=== PATIENT | female | born 1950 | race Caucasian/White ===

== ENCOUNTER 2017-02-19 07:11 | Inpatient (IN) | payer OTHER ==
[2017-01-12 11:02] VITALS: BMI 31.0
--- NOTE | 2017-01-12 11:34 | PAT Medication Instructions ---
Service Date Jan 12, 2017. Current Home Medication List Albuterol Sulfate (Proair Respiclick), 1 PUFF INH QID PRN for Shortness of Breath Allopurinol (Zyloprim), 300 MG PO QAM Aspirin (Aspirin Ec), 81 MG PO QAM Cholecalciferol (Vitamin D3), 1 TAB PO BID Cranberry-Vitamin C (Azo Cranbery Urinary Trac 250-60 mg), 1 CAP PO QAM Fluticasone Prop/Salmeterol (Advair Diskus 250/50 60 Dose), 1 PUFF INH BID Naproxen (Naprosyn), 500 MG PO QAM Naproxen (Naprosyn), 250 MG PO HS [place]-3 Fatty Acids (Fish Oil), 1 CAP PO QAM Omeprazole (Prilosec), 20 MG PO QAM Potassium Gluconate (Potassium Gluconate), 1 TAB PO QAM Rosuvastatin Calcium (Crestor), 5 MG PO Q2D Tramadol Hcl (Ultram), 25-50 MG PO Q4HR PRN Triamterene/Hctz (Dyazide 37.5MG/25MG), 1 TABLET PO BID Medication Instructions For Your Scheduled Surgery - Hold the following medications 2 weeks prior to surgery: [place]-3 Fatty Acids (Fish Oil), 1 CAP PO QAM Cranberry-Vitamin C (Azo Cranbery Urinary Trac 250-60 mg), 1 CAP PO QAM - Hold the following medications 7-10 days prior to surgery per surgeon's instructions: Naproxen (Naprosyn), 500 MG PO QAM Naproxen (Naprosyn), 250 MG PO HS - Hold the following medications the morning of surgery: Triamterene/Hctz (Dyazide 37.5MG/25MG), 1 TABLET PO BID Cholecalciferol (Vitamin D3), 1 TAB PO BID Potassium Gluconate (Potassium Gluconate), 1 TAB PO QAM - Take the following medications the morning of surgery with a sip of water OTHERWISE NOTHING TO EAT OR DRINK AFTER MIDNIGHT: Aspirin (Aspirin Ec), 81 MG PO QAM Fluticasone Prop/Salmeterol (Advair Diskus 250/50 60 Dose), 1 PUFF INH BID Allopurinol (Zyloprim), 300 MG PO QAM Omeprazole (Prilosec), 20 MG PO QAM Tramadol Hcl (Ultram), 25-50 MG PO Q4HR PRN (may take if needed up to 4 hours prior to surgery) Albuterol Sulfate (Proair Respiclick), 1 PUFF INH QID PRN for Shortness of Breath (use if needed; BRING TO HOSPITAL) - Take the following medications as scheduled the night before surgery: Triamterene/Hctz (Dyazide 37.5MG/25MG), 1 TABLET PO BID Cholecalciferol (Vitamin D3), 1 TAB PO BID Fluticasone Prop/Salmeterol (Advair Diskus 250/50 60 Dose), 1 PUFF INH BID Tramadol Hcl (Ultram), 25-50 MG PO Q4HR PRN Rosuvastatin Calcium (Crestor), 5 MG PO Q2D Albuterol Sulfate (Proair Respiclick), 1 PUFF INH QID PRN for Shortness of Breath If you have any questions please call us at [phone] or [phone] or [phone]
[2017-01-12 12:08] LABS: BASO % 0.2 %; BASO ABS # 0.01 K/uL (0-0.2); COMPLETE YES; EOS % 1.7 %; HEMATOCRIT 37.1 % (37-47); IG% 0.3 %; LYMPH % 29.1 %; LYMPH ABS # 1.71 K/uL (1.2-3.4); MEAN CELL VOLUME 94.4 fL (80-100); MEAN CORPUSCULAR HEMOGLOBIN 31.3 pg (25-34); MEAN CORPUSCULAR HGB CONC 33.2 g/dl (32-36); MEAN PLATELET VOLUME 10.7 fL (7.4-10.4); MONO % 4.6 %; NEUT % 64.1 %; PLATELET COUNT 248 K/uL (130-400); RED BLOOD COUNT 3.93 M/uL (4.2-5.4); WHITE BLOOD COUNT 5.88 K/uL (4.8-10.8)
[2017-01-12 12:10] LABS: URINE APPEARANCE CLEAR (CLEAR); URINE BILIRUBIN NEG (NEG); URINE COLOR YELLOW; URINE NITRITE NEG (NEG); URINE PH 7.5 (4.5-7.5); URINE SPECIFIC GRAVITY 1.014 (1.000-1.030); UROBILINOGEN NEG (NEG); ZZUR CULT IF INDIC CLEAN CATCH NO
[2017-01-12 12:16] LABS: MANUAL MICROSCOPIC REQUIRED? NO; REVIEW REQ? NO
[2017-01-12 12:26] LABS: PARTIAL THROMBOPLASTIN RATIO 1.1; PROTHROMBIN TIME (PATIENT) 10.6 SECONDS (9.0-12.0)
[2017-01-12 12:31] LABS: BUN/CREATININE RATIO 27.5 (10-20); CALCIUM 9.5 mg/dl (8.5-10.1); CREATININE 0.92 mg/dl (0.60-1.20); POTASSIUM 3.7 mmol/L (3.5-5.1)
--- NOTE | 2017-01-12 12:39 | DIAGNOSTIC IMAGING REPORT ---
CHEST 2 VIEWS ROUTINE CLINICAL HISTORY: PAT preoperative evaluation COMPARISON STUDY: 06/21/2012 FINDINGS: The bones soft tissues and hemidiaphragms are normal. The cardiomediastinal silhouette is normal. The lungs are clear. The pulmonary vasculature is normal. IMPRESSION: Negative chest. Electronically signed by: Aquiles Hanley M.D. 01/12/2017 12:37 PM Dictated Date/Time: 01/12/2017 12:37 PM
--- NOTE | 2017-02-16 15:12 | HISTORY & PHYSICAL EXAMINATION ---
DATE OF ADMISSION: 02/19/2017 CHIEF COMPLAINT: Left knee pain. HISTORY OF PRESENT ILLNESS: Domonique is a 66-year-old female with a 5-year history of pain in her left knee. The patient rates her pain a 10/10. She has pain with her daily activities. She has limited standing and walking tolerance. Pain is worse with weightbearing. The patient has had injections, anti-inflammatories, and tramadol without relief. She has failed conservative treatment and is scheduled for left knee replacement. PAST MEDICAL HISTORY: Hypercholesterolemia, hypertension, COPD, and Meniere's disease. She denies heart disease, diabetes or DVT. PAST SURGICAL HISTORY: Hysterectomy, right total knee arthroplasty. SOCIAL HISTORY: The patient denies alcohol or tobacco use. She lives in a 2-story home. She is and retired. FAMILY HISTORY: Negative for DVT. MEDICATIONS: Advair Diskus 250/50 one puff q. 12 hours, ProAir 108 mcg 2 puffs q. 4 hours p.r.n., allopurinol 300 mg, omeprazole 20 mg, triamterene/hydrochlorothiazide 37.5/25 daily, tramadol 50 mg p.r.n., naproxen 500 mg b.i.d., aspirin 81 mg daily, vitamin D3 1000 international units daily, AZO 1 per day, potassium gluconate 550 mcg daily, Crestor 5 mg every other day, and fish oil 1200 mg 1 daily. ALLERGIES: CALCIUM, DOXYCYCLINE, LEVOFLOXACIN, SULFA AND CODEINE. SHE HAS SEVERE INTOLERANCE TO NARCOTICS. REVIEW OF SYSTEMS: See HPI. Ten other systems reviewed, all negative. PHYSICAL EXAMINATION: VITAL SIGNS: Height 5 feet 3 inches, weight 174 pounds, BMI 31. GENERAL: This is a well-developed, well-nourished female who is alert and oriented x3. Mood and affect are appropriate. HEENT: Normocephalic, atraumatic. Mucous membranes are moist and intact. NECK: Supple without lymphadenopathy. HEART: Regular rate and rhythm without murmurs, rubs or gallops. LUNGS: Clear to auscultation without wheezes or rhonchi. ABDOMEN: Soft and nontender. Bowel sounds are equal and active. EXTREMITIES: No ecchymosis, redness or warmth. She has varus valgus deformity. Range of motion is from 3-115 degrees with +1 laxity. She is neurovascularly intact with +5/5 strength. X-RAY EXAMINATION: AP and lateral views show joint space narrowing and osteophyte formation. IMPRESSION: Degenerative joint disease, left knee. PLAN: The patient will be admitted for a left total knee arthroplasty. We will plan on aspirin for DVT prophylaxis. She will have [facility] for physical therapy. PCP is Jeremy Fuentes in [place]. The patient will be limited in her narcotics because they make her nauseous.
[~2017-02-19] VITALS: Ht 160 cm; Wt 79.4 kg
[2017-02-19] VITALS (9 sets, daily range): BP systolic 110–174; BP diastolic 64–85; PULSE 60–79; TEMP 36.4–36.6; O2SAT 96–98; Ht 160 cm; Wt 79.4 kg
[2017-02-19] MEDS: TRANEXAMIC ACID INJ 1,000 MG in SODIUM CHLORIDE 0.9% 100ML 100 ML IV SCH ×2 (06:30→09:05)
[~2017-02-19 07:11] MED LIST: ACETAMINOPHEN 500 MG TAB PO SCH; ADVIN25/60 INH; ALBU18002 INH; ALLO300T2 PO; ASPI81TA28 PO; BUPIVACAINE 0.5 % 5 MG/1 ML PF 10ML VIAL ONE; CEFAZOLIN 2000 MG/60 ML D5W 60 ML IV SCH; CHOL1000 PO; CITA10TA8 PO; CRAN1CAP24 PO; DEXAMETHASONE 4 MG TAB PO SCH; FAMOTIDINE 20 MG TAB PO SCH; GABAPENTIN 300 MG CAP PO SCH; LACTATED RINGER'S 1000ML 1,000 ML IV SCH; LACTATED RINGER'S 1000ML IV SCH; METOCLOPRAMIDE HCL 10 MG TAB PO SCH; NAPR-1169 PO; OMEGCAP2 PO; POLYMYXIN B SULFATE 100,000 UNITS in NSS 100ML IR SCH; POTA550T4 PO; PRLSR20 PO; ROPIVACAINE 5MG/ML 30 ML 150 MG, BUPIVACAINE/EPINEPHR 0.5% MPF 30 ML, KETOROLAC TROMETH... INFIL SCH; ROSU5TAB PO; SCOPOLAMINE 1.5 MG TDSY TD SCH; TRAMADOL HCL 50 MG TAB PO SCH; TRIA37.5 PO; ULT/50 PO; VANCOMYCIN INJ 400 MG in NSS 100ML IR SCH
[2017-02-19] MEDS ORDERED: PROPOFOL IV EMULSION 10 MG/ML 20 ML VIAL IV ONE (08:19)
[2017-02-19] MEDS ORDERED: LIDOCAINE HCL 2% 2 ML VIAL (20MG/ML) ONE (08:19)
[2017-02-19] MEDS ORDERED: MIDAZOLAM HCL 1 MG/ML 2ML VIAL ONE (08:20)
[2017-02-19] MEDS ORDERED: FENTANYL CITRATE INJ 50 MCG/1 ML 2 ML VIAL ONE (08:20)
--- NOTE | 2017-02-19 08:23 | History & Physical Bridge Note ---
H&P Re-Evaluation Bridge Note: I have examined the patient, reviewed the History & Physical and in the interval since the performance of the History & Physical I have noted the following changes of clinical significance: No changes noted
[2017-02-19] MEDS ORDERED: POVIDONE-IODINE OP SOLN 30 ML BTL ONE (08:57)
[2017-02-19] MEDS ORDERED: BACITRACIN 50000 UNIT VIAL ONE (08:57)
[2017-02-19] MEDS ORDERED: BUPIVACAINE/EPINEPHRINE 0.25% 1:200,000 30 ML VIAL ONE (08:57)
[2017-02-19] MEDS ORDERED: ORTHO JOINT ANESTHETIC ONE (08:57)
[2017-02-19] MEDS ORDERED: ATROPINE SULFATE 0.1 MG/ML 5ML SYR IV PRN (09:00)
[2017-02-19] MEDS ORDERED: MoRPHine SULFATE 10 MG/ML CARP/VIAL IV PRN (09:00)
[2017-02-19] MEDS ORDERED: FENTANYL CITRATE INJ 50 MCG/1 ML 2 ML VIAL IV PRN (09:00)
[2017-02-19] MEDS ORDERED: MEPERIDINE HCL 25 MG/ML CARP IV PRN (09:00)
[2017-02-19] MEDS ORDERED: EpHEDrine SULFATE INJ 50 MG/ML AMP IV PRN (09:00)
[2017-02-19] MEDS ORDERED: ONDANSETRON INJ 2 MG/ML 2 ML VIAL IV PRN ×2 (09:00→10:45)
--- NOTE | 2017-02-19 10:34 | [facility] Post Operative Brief Note ---
Immediate Operative Summary Operative Date Feb 19, 2017. Pre-Operative Diagnosis Left Knee Degenerative Joint Disease Post-Operative Diagnosis Left Knee Degenerative Joint Disease Procedure(s) Performed Left Total Knee Arthroplasty, Cemented Surgeon Dr. Grabiel Prater Sanding Machine Tender Surgeon(s) Sandee Banerjee PA-C Estimated Blood Loss 75 mL Findings DJD Specimens A: Left Knee Bone and Tissue Complication(s) None Disposition Recovery Room / PACU
[2017-02-19] MEDS ORDERED: ZOLPIDEM TARTRATE 5 MG TAB PO PRN (10:45)
[2017-02-19] MEDS ORDERED: SOD PHOSPHATE/SOD BIPHOSPHATE ENEMA 132 ML BTL PR PRN (10:45)
[2017-02-19] MEDS ORDERED: BISACODYL 10 MG SUPP PR PRN (10:45)
[2017-02-19] MEDS ORDERED: ALUMINUM/MAGNESIUM/SIMETH (MAALOX MAX) 30 ML UDC PO PRN (10:45)
[2017-02-19] MEDS ORDERED: ALBUTEROL HFA 8 GM INHALER INH PRN (10:45)
[2017-02-19] MEDS ORDERED: DiphenhydrAMINE HCL 50 MG/ML VIAL IV PRN (10:45)
[2017-02-19] MEDS ORDERED: MAGNESIUM HYDROXIDE SUSP 30 ML UDC PO PRN (10:45)
[2017-02-19] MEDS ORDERED: METOCLOPRAMIDE HCL INJ 5 MG/ML 2 ML VIAL IV PRN (10:45)
--- NOTE | 2017-02-19 12:00 | DIAGNOSTIC IMAGING REPORT ---
LEFT KNEE 1 OR 2 VIEWS ROUTINE CLINICAL HISTORY: Degenerative arthritis COMPARISON: None. DISCUSSION: There are postsurgical changes of a total left knee arthroplasty and patellar resurfacing. The femoral and tibial components appear well seated. There are overlying surgical drains. There is air within the soft tissues consistent with history of recent surgery IMPRESSION: Postsurgical changes of a total left knee arthroplasty Electronically signed by: Anam Reddy M.D. 02/19/2017 11:59 AM Dictated Date/Time: 02/19/2017 11:58 AM
[2017-02-19] MEDS: D5W AND 1/2NSS + 20MEQ KCL 1,000 ML IV SCH ×2 (13:07→22:29)
--- NOTE | 2017-02-19 13:52 | Anesthesiology Progress Note ---
Anesthesia Post Op Note Date & Time Feb 19, 2017 at 13:52 Vital Signs Pain Intensity: 0.0 Vital Signs Past 12 Hours Date Time Temp Pulse Resp B/P Pulse Ox O2 Delivery O2 Flow Rate FiO2 02/19/17 13:23 36.4 73 16 125/75 98 Nasal Cannula 2.0 02/19/17 12:41 64 16 115/69 02/19/17 12:15 96 Nasal Cannula 3.0 02/19/17 12:15 36.6 69 16 111/66 96 Nasal Cannula 3.0 02/19/17 12:15 96 Nasal Cannula 3.0 02/19/17 11:50 36.8 69 16 113/57 97 Nasal Cannula 3 02/19/17 11:35 36.8 67 16 120/60 99 Nasal Cannula 3 02/19/17 11:25 67 16 119/56 99 Nasal Cannula 3 02/19/17 11:15 72 16 123/62 99 Mask 10 02/19/17 11:05 36.3 73 16 126/62 96 Mask 10 02/19/17 07:45 36.6 75 20 174/85 96 Room Air Notes Mental Status: alert / awake / arousable, participated in evaluation Pt Amnestic to Procedure: Yes Nausea / Vomiting: adequately controlled Pain: adequately controlled Airway Patency, RR, SpO2: stable & adequate BP & HR: stable & adequate Hydration State: stable & adequate Neuraxial Anesthesia: was administered, sensory block is resolving Anesthetic Complications: no major complications apparent
[2017-02-19] MEDS: ACETAMINOPHEN 500 MG TAB PO SCH ×2 (14:10→21:53)
[2017-02-19] MEDS: KETOROLAC TROMETHAMINE 15 MG/ML VIAL IV. SCH ×2 (14:11→19:40)
[2017-02-19] MEDS: CHECK SCOPOLAMINE PATCH PLACEMENT SCH ×2 (16:03→23:34)
[2017-02-19] MEDS ORDERED: TRANEXAMIC ACID INJ 1,000 MG in SODIUM CHLORIDE 0.9% 100ML 100 ML IV SCH (17:00)
[2017-02-19] MEDS: CLINDAMYCIN IV 600 MG in DEXTROSE 5% ADD-VANTAGE 50ML 50 ML IV SCH (18:02)
[2017-02-19] MEDS: FLUTICASONE/SALMETEROL 250/50 (ADVAIR) 14 PUFF/1 INHALER INH SCH (20:53)
[2017-02-19] MEDS: ASPIRIN 81 MG ECTAB PO SCH (20:53)
[2017-02-19] MEDS: CHOLECALCIFEROL 1000 INTER.UNIT TAB PO SCH (20:54)
[2017-02-19] MEDS: SENNA 8.6 MG TAB PO SCH (20:54)
[2017-02-19] MEDS: TRIAMTERENE/HCTZ 37.5/25MG CAP PO SCH (20:54)
[2017-02-20] MEDS: CLINDAMYCIN IV 600 MG in DEXTROSE 5% ADD-VANTAGE 50ML 50 ML IV SCH (01:40)
[2017-02-20] MEDS: KETOROLAC TROMETHAMINE 15 MG/ML VIAL IV. SCH ×4 (01:40→19:41)
--- NOTE | 2017-02-20 02:47 | OPERATIVE REPORT ---
DATE OF OPERATION: 02/19/2017 PREOPERATIVE DIAGNOSIS: Degenerative arthritis, left knee. POSTOPERATIVE DIAGNOSIS: Same. PROCEDURE: Left total knee replacement. SURGEON: Grabiel Prater MD OUTDOOR STUDIES DIRECTOR: PAPITO Lowery ANESTHESIA: Spinal. BLOOD LOSS: 75 mL. REPLACEMENT FLUIDS: 1800 mL of crystalloid. DRAINS: Hemovac x2. CULTURES: None. COMPLICATIONS: None. COMPONENTS USED: Garcia \T\ Nephew Journey Knee System: Femur size 5, tibia size 4 x 12, patella size 35. NOTE: PAPITO Lowery was present and assisted throughout due to the complicated nature of this case. She helped with preparation and set up, first assisted throughout and personally closed capsule, subcutaneous and skin layers and applied the postoperative dressing. DESCRIPTION OF PROCEDURE: Following satisfactory spinal, the patient was supine. A tourniquet was placed but not inflated. The lower extremity was prepared with ChloraPrep and draped sterilely. Following a surgical time-out, a midline incision was made with a median parapatellar arthrotomy. The patella showed severe disease, so did the lateral compartment. The cruciate ligaments were excised. Using the IM alignment system with a 6 degree valgus cut, the distal femur was prepared and sized for a size 5 component. When all cuts were completed, attention was turned to the tibia. The tibia was resected with the extramedullary alignment guide in a neutral fashion and prepared. The patella was freehand cut. Soft tissue balancing was completed and a trial reduction showed good tensioning stability on the collateral ligaments, stable range of motion, and the patella tracked well. The trial components were removed. The capsule was prepared with the orthopedic cocktail and after irrigation, the components were cemented using Simplex G cement. While the cement was hardening, a Betadine soak was performed. The Betadine was then irrigated, 2 drains were placed. The arthrotomy was closed with a running suture of 0 V-Loc and reinforced with 1 Vicryl, the subcutaneous tissues with 2-0 Vicryl and the skin with a running subcuticular stitch of 3-0 V-Loc. Dermabond and a dry dressing were applied. The patient was returned to her bed in stable condition. I attest to the content of the Intraoperative Record and any orders documented therein. Any exceptio ns are noted below.
[2017-02-20 03:10] VITALS: BP 136/61; PULSE 73; TEMP 36.5; O2SAT 98
[2017-02-20] MEDS: TRAMADOL HCL 50 MG TAB PO PRN ×4 (03:15→21:19)
[2017-02-20] MEDS: ACETAMINOPHEN 500 MG TAB PO SCH ×3 (05:31→21:23)
--- NOTE | 2017-02-20 07:46 | Anesthesiology Progress Note ---
Anesthesia Post Op Note Date & Time Feb 20, 2017 at 07:45 Vital Signs Pain Intensity: 7.0 Vital Signs Past 12 Hours Date Time Temp Pulse Resp B/P Pulse Ox O2 Delivery O2 Flow Rate FiO2 02/20/17 03:10 36.5 73 16 136/61 98 Room Air 02/19/17 23:30 Room Air 02/19/17 23:25 36.5 60 16 113/67 96 Room Air Notes Mental Status: alert / awake / arousable, participated in evaluation Pt Amnestic to Procedure: Yes Nausea / Vomiting: adequately controlled Pain: adequately controlled Airway Patency, RR, SpO2: stable & adequate BP & HR: stable & adequate Hydration State: stable & adequate Anesthetic Complications: no major complications apparent
[2017-02-20 07:49] LABS: HEMATOCRIT 32.2 % (37-47); MEAN CELL VOLUME 90.7 fL (80-100); MEAN CORPUSCULAR HGB CONC 34.2 g/dl (32-36); MEAN PLATELET VOLUME 10.7 fL (7.4-10.4); PLATELET COUNT 248 K/uL (130-400); RED BLOOD COUNT 3.55 M/uL (4.2-5.4); WHITE BLOOD COUNT 14.28 K/uL (4.8-10.8)
[2017-02-20 08:00] VITALS: BP 164/74; PULSE 80; TEMP 36.6; O2SAT 97
[2017-02-20] MEDS: CHECK SCOPOLAMINE PATCH PLACEMENT SCH ×2 (08:00→16:37)
[2017-02-20 08:12] LABS: BUN/CREATININE RATIO 23.9 (10-20); CALCIUM 8.8 mg/dl (8.5-10.1); POTASSIUM 3.6 mmol/L (3.5-5.1)
[2017-02-20] MEDS: ASPIRIN 81 MG ECTAB PO SCH ×2 (08:52→21:22)
[2017-02-20] MEDS: MULTIVITAMIN TAB PO SCH (08:52)
[2017-02-20] MEDS: CITALOPRAM 20 MG TAB PO SCH (08:54)
[2017-02-20] MEDS: ALLOPURINOL 300 MG TAB PO SCH (08:54)
[2017-02-20] MEDS: CHOLECALCIFEROL 1000 INTER.UNIT TAB PO SCH ×2 (08:55→21:24)
[2017-02-20] MEDS: PANTOprazole SOD 40 MG TAB PO SCH (08:55)
[2017-02-20] MEDS: FLUTICASONE/SALMETEROL 250/50 (ADVAIR) 14 PUFF/1 INHALER INH SCH ×2 (08:56→21:22)
[2017-02-20] MEDS: TRIAMTERENE/HCTZ 37.5/25MG CAP PO SCH ×2 (08:56→21:22)
[2017-02-20] MEDS: D5W AND 1/2NSS + 20MEQ KCL 1,000 ML IV SCH (09:00)
[2017-02-20] MEDS ORDERED: ROSUVASTATIN CALCIUM 10 MG TAB PO SCH (09:00)
[2017-02-20] MEDS ORDERED: NON-FORMULARY MEDICATION (Potassium Gluconate 1 TAB) PO SCH (09:00)
--- NOTE | 2017-02-20 10:59 | Orthopedic Progress Note ---
Orthopedic Progress Note Date of Service Feb 20, 2017. Subjective Post OP Day: 1 Reports: feeling well, Denies: SOB, calf pain, chest pain, light headedness, nausea / vomiting Objective calves soft nontender, N/V intact, dressing C/D/I, A&O x3, toes mobile, hemovac drainage (175ml latest shift) Date Time Temp Pulse Resp B/P Pulse Ox O2 Delivery O2 Flow Rate FiO2 02/20/17 09:33 Room Air 02/20/17 08:00 36.6 80 18 164/74 97 Room Air 02/20/17 07:30 Room Air 02/20/17 03:10 36.5 73 16 136/61 98 Room Air 02/19/17 23:30 Room Air 02/19/17 23:25 36.5 60 16 113/67 96 Room Air 02/19/17 19:44 36.4 67 16 124/71 96 Room Air 02/19/17 15:45 97 Room Air 2.0 02/19/17 15:26 79 16 110/64 02/19/17 14:22 36.4 69 18 121/67 97 Room Air 02/19/17 13:23 36.4 73 16 125/75 98 Nasal Cannula 2.0 02/19/17 12:41 64 16 115/69 02/19/17 12:15 96 Nasal Cannula 3.0 02/19/17 12:15 36.6 69 16 111/66 96 Nasal Cannula 3.0 02/19/17 12:15 96 Nasal Cannula 3.0 02/19/17 11:50 36.8 69 16 113/57 97 Nasal Cannula 3 02/19/17 11:35 36.8 67 16 120/60 99 Nasal Cannula 3 02/19/17 11:25 67 16 119/56 99 Nasal Cannula 3 02/19/17 11:15 72 16 123/62 99 Mask 10 02/19/17 11:05 36.3 73 16 126/62 96 Mask 10 Laboratory Results 24 Hours: Test 02/20/17 07:10 Hematocrit 32.2 % Hemoglobin 11.0 g/dL Assessment & Plan Assessment: POD 1 s/p Left TKA Plan: PT/OT Planning for [facility] tomorrow per patient. Inhouse Planning Pain Management: Toradol, Ultram, PO Tylenol DVT Prophylaxis: TEDs, SCDs, ASA Discharge Planning Discharge Planning: home with home health Pain Management: Ultram, PO Tylenol DVT Prophylaxis: TEDs, ASA Therapy: Physical Therapy
--- NOTE | 2017-02-20 12:14 | Discharge Instructions ---
Discharge Instructions Date of Service Feb 20, 2017. Admission Reason for Admission: Left Knee Degenerative Arthritis Discharge Discharge Diagnosis / Problem: SP LEFT TKA Discharge Goals Goal(s): Decrease discomfort, Improve function, Increase independence Activity Recommendations Activity Limitations: per Instructions/Follow-up section . Instructions / Follow-Up Instructions / Follow-Up ACTIVITY RECOMMENDATIONS: SELF CARE INSTRUCTIONS AFTER TOTAL KNEE REPLACEMENT A. You may need to continue a physical therapy program after discharge from the hospital. There are several options available to you. Your doctor will assist you in selecting the best one for you. 1. An out-patient facility 2 to 3 times a week for therapy or home therapy. 2. Continue working on all exercises taught to you in the hospital. Your goals should be to increase bending of your knee to 90 degrees and beyond and to fully straighten your knee. B. You may progress at your own pace from walking with a walker or crutches to a cane; then to no assistive devices. C. Make walking a part of your daily routine. Be up as much as comfortable with rest periods throughout the day. Rest with leg elevation is very important. Use the ice wrap frequently for the first 3-4 weeks. D. There are no restrictions on activities. You may ride in a car, shop, participate in tax agent and all social activities. E. Wear the long elastic stockings (MARCE hose) 20 hours a day for 2 weeks after surgery. They can be removed several times a day for laundering and for a bath. F. You may shower, no tub baths until cleared by your doctor. SPECIAL CARE INSTRUCTIONS: VERY IMPORTANT TO READ AND REVIEW A. There are a few signs you need to watch for after you are home. Call [facility] if you notice any of the followin. Increased severe knee pain. Some pain is expected especially when you exercise. 2. Increased swelling in your leg or knee; pain or swelling of the calf muscle in either lower leg. 3. Any fluid drainage from the incision. 4. Shortness of breath or chest pain. B. Please call [facility] at if you have any concerns or questions about your operation or recovery. The doctor or his nurse will return your call promptly. C. You must take antibiotics before dental work, bladder, bowel or other surgery. Your doctor will provide you with a permanent care to carry describing this precaution. IMPORTANT: * REMEMBER TO TAKE ASPIRIN, 81 MG, TWICE DAILY FOR 4 WEEKS UNLESS OTHERWISE DIRECTED. THIS IS YOUR BLOOD THINNER. * HIGH RISK PATIENTS MAY BE PRESCRIBED A STRONGER BLOOD THINNER. THIS WILL BE PROVIDED AT DISCHARGE. * CALL IF INCREASED PAIN, REDNESS, DRAINAGE OR FEVER GREATER THAT 101. * WEAR MARCE HOSE 20 HOURS PER DAY FOR 2 WEEKS. DERMABOND Prineo- This is a mesh tape dressing that is covered with glue. It should remain in place until the incision is properly healed, usually 10-14 days. This dressing is designed to naturally slough off. You may trim the excess mesh tape as it peels off. Incision may be briefly wet in a shower. Dry immediately by blotting with a clean, dry towel. Do not bath or swim until instructed by your doctor. Do not scratch, rub, or pick at the dressing. Do not apply any topical ointments or lotions until dressing is completely removed and/or instructed by your doctor. There may be a small piece of suture material at one end of your incision. Do not pull or trim this. If it is bothersome or catching on clothing, you may cover it with a band-aid. FOLLOW UP VISIT: If appointment is not already scheduled: Please call [facility] to make a follow-up appointment for 2 weeks after your surgery at . Current Hospital Diet Patient's current hospital diet: Regular Diet Discharge Diet Recommended Diet: Regular Diet Procedures Procedures Performed: Left Total Knee Arthroplasty, Cemented Pending Studies Studies pending at discharge: no Medical Emergencies . Who to Call and When: Medical Emergencies: If at any time you feel your situation is an emergency, please call 911 immediately. . Non-Emergent Contact Non-Emergency issues call your: Surgeon . "Provider Documentation" section prepared by Sandee Banerjee. VTE Core Measure Inpt VTE Proph given/why not?: Other Anticoagulation, T.E.D. Stockings, SCD's
[2017-02-20 12:28] VITALS: BP 158/81; PULSE 74; TEMP 36.9; O2SAT 99
[2017-02-20 15:21] VITALS: BP 140/65; PULSE 75; TEMP 36.5; O2SAT 96
[2017-02-20] MEDS: SENNA 8.6 MG TAB PO SCH (21:00)
[2017-02-20 23:50] VITALS: BP 146/73; PULSE 75; TEMP 36.6; O2SAT 96
[2017-02-21] MEDS: CHECK SCOPOLAMINE PATCH PLACEMENT SCH
[2017-02-21] MEDS: KETOROLAC TROMETHAMINE 15 MG/ML VIAL IV. SCH ×2 (02:26→07:37)
[2017-02-21] MEDS: ACETAMINOPHEN 500 MG TAB PO SCH (05:33)
[2017-02-21] MEDS: TRAMADOL HCL 50 MG TAB PO PRN ×2 (05:33→10:59)
[2017-02-21 07:01] VITALS: BP 127/72; PULSE 71; TEMP 36.8; O2SAT 98
--- NOTE | 2017-02-21 07:33 | Orthopedic Progress Note ---
Orthopedic Progress Note Date of Service Feb 21, 2017. Subjective Post OP Day: 2 Reports: feeling well, Denies: SOB, calf pain, chest pain, light headedness, nausea / vomiting Objective calves soft nontender, N/V intact, incision C/D/I (mod ecchymosis at hemovac site.), A&O x3, toes mobile Date Time Temp Pulse Resp B/P Pulse Ox O2 Delivery O2 Flow Rate FiO2 02/21/17 07:01 36.8 71 16 127/72 98 Room Air 02/20/17 23:50 36.6 75 16 146/73 96 Room Air 02/20/17 20:20 Room Air 02/20/17 15:21 36.5 75 18 140/65 96 Room Air 02/20/17 12:28 36.9 74 16 158/81 99 Room Air 02/20/17 09:33 Room Air 02/20/17 08:00 36.6 80 18 164/74 97 Room Air Assessment & Plan Assessment: POD 2 s/p Left TKA Plan: PT/OT Planning for [facility]- DC HOME TODAY Inhouse Planning Pain Management: Toradol, Ultram, PO Tylenol DVT Prophylaxis: TEDs, SCDs, ASA Discharge Planning Discharge Planning: home with home health Pain Management: Ultram, PO Tylenol DVT Prophylaxis: TEDs, ASA Therapy: Physical Therapy
[2017-02-21] MEDS: ALLOPURINOL 300 MG TAB PO SCH (07:36)
[2017-02-21] MEDS ORDERED: ACET-1138 PO (07:36)
[2017-02-21] MEDS ORDERED: ULT/50 PO (07:36)
[2017-02-21] MEDS ORDERED: ASPI81TA28 PO (07:36)
[2017-02-21] MEDS: CITALOPRAM 20 MG TAB PO SCH (07:36)
[2017-02-21] MEDS ORDERED: ONDA8TAB6 PO (07:36)
[2017-02-21] MEDS ORDERED: SNK PO (07:36)
[2017-02-21] MEDS: PANTOprazole SOD 40 MG TAB PO SCH (07:37)
[2017-02-21] MEDS: CHOLECALCIFEROL 1000 INTER.UNIT TAB PO SCH (07:37)
[2017-02-21] MEDS: FLUTICASONE/SALMETEROL 250/50 (ADVAIR) 14 PUFF/1 INHALER INH SCH (07:38)
[2017-02-21] MEDS: MULTIVITAMIN TAB PO SCH (07:38)
[2017-02-21] MEDS: TRIAMTERENE/HCTZ 37.5/25MG CAP PO SCH (07:38)
[2017-02-21 08:04] VITALS: BP 138/78; PULSE 78; TEMP 36.6; O2SAT 99
[2017-02-21 09:18] VITALS: O2SAT 99
[2017-02-21] MEDS: ASPIRIN 81 MG ECTAB PO SCH (10:58)
[2017-02-21 11:01] VITALS: BP 138/78; PULSE 78; TEMP 36.6; O2SAT 99
--- NOTE | 2017-03-07 08:57 | DISCHARGE SUMMARY ---
DISCHARGE DIAGNOSIS: Degenerative joint disease, left knee. SECONDARY DIAGNOSIS: Hypertension. CONSULTS: None. COMPLICATIONS: None. PROCEDURE: The patient underwent a left total knee arthroplasty by Dr. Prater on 02/19/2017. BRIEF HISTORY: Please see previously dictated history and physical. HOSPITAL SUMMARY: The patient was admitted on the above day for the above procedure. Procedure went without complication. Postop day 1, the patient was feeling well without complaints. She denied chest pain or shortness of breath. Vital signs were stable. She was afebrile. Dressing was clean, dry and intact. She was neurovascularly intact. Calves were soft and nontender. Hemovac drained 175 mL. Hemoglobin was 11.0. She began physical therapy per protocol. Postop day 2, the patient continued to improve. She denied chest pain or shortness of breath. Vital signs were stable. She was afebrile. Incision was clean, dry and intact. She had moderate ecchymosis at the Hemovac site. She continued to progress with therapy and was discharged to home later that day in stable condition. For further review, please see the chart. LABORATORY, X-RAY DATA, AND DISCHARGE INSTRUCTIONS: As per chart.
== END 2017-02-21 11:30 | disposition home health service (06) | DRG 470 ==
LOC: ENRESERVDT → ENRESERVTM → C.ACU 07:11 → C.3E 08:00
PROVIDERS: ADMIT Orthopaedic Surgery; ATTEND Orthopaedic Surgery
PROC: 0SRD0J9 Replacement of Left Knee Joint with Synthetic Substitute, Cemented, Open Approach (ICD-10-PCS; principal; 2017-02-19 09:15)
DX: M17.12 Unilateral primary osteoarthritis, left knee (principal); I10 Essential (primary) hypertension; E78.00 Pure hypercholesterolemia, unspecified; J44.9 Chronic obstructive pulmonary disease, unspecified; J45.909 Unspecified asthma, uncomplicated; H81.09 Meniere's disease, unspecified ear; K21.9 Gastro-esophageal reflux disease without esophagitis; G43.909 Migraine, unspecified, not intractable, without status migrainosus; M10.9 Gout, unspecified; E66.9 Obesity, unspecified; Z68.31 Body mass index [BMI] 31.0-31.9, adult; Z96.651 Presence of right artificial knee joint; Z79.1 Long term (current) use of non-steroidal anti-inflammatories (NSAID); Z79.82 Long term (current) use of aspirin; Z79.51 Long term (current) use of inhaled steroids; Z79.891 Long term (current) use of opiate analgesic; Z79.899 Other long term (current) drug therapy

== ENCOUNTER → 2017-06-13 | Outpatient (CLI) | payer OTHER ==
[~2017-06-13] MED LIST changes: +ACET-1138 PO; -ACETAMINOPHEN 500 MG TAB PO SCH; -BUPIVACAINE 0.5 % 5 MG/1 ML PF 10ML VIAL ONE; -CEFAZOLIN 2000 MG/60 ML D5W 60 ML IV SCH; -DEXAMETHASONE 4 MG TAB PO SCH; -FAMOTIDINE 20 MG TAB PO SCH; -GABAPENTIN 300 MG CAP PO SCH; -LACTATED RINGER'S 1000ML 1,000 ML IV SCH; -LACTATED RINGER'S 1000ML IV SCH; -METOCLOPRAMIDE HCL 10 MG TAB PO SCH; -NAPR-1169 PO; +ONDA8TAB6 PO; -POLYMYXIN B SULFATE 100,000 UNITS in NSS 100ML IR SCH; -ROPIVACAINE 5MG/ML 30 ML 150 MG, BUPIVACAINE/EPINEPHR 0.5% MPF 30 ML, KETOROLAC TROMETH... INFIL SCH; -SCOPOLAMINE 1.5 MG TDSY TD SCH; +SNK PO; -TRAMADOL HCL 50 MG TAB PO SCH; -VANCOMYCIN INJ 400 MG in NSS 100ML IR SCH
--- NOTE | 2017-06-13 11:42 | DIAGNOSTIC IMAGING REPORT ---
(RENAL)RETROPERITONEA COMP HISTORY: Renal insufficiency N17.9 Acute kidney [id number] COMPARISON: None. FINDINGS: Right kidney: Maximum linear dimension 9.8 cm. No evidence for hydronephrosis. Mild cortical scarring. Normal corticomedullary differentiation and cortical thickness. Left kidney: Maximum linear dimension 9.3 cm. No evidence for hydronephrosis. 8 mm lower pole cyst. Mild renal cortical scarring. Normal corticomedullary differentiation and cortical thickness. Bladder: No abnormality IMPRESSION: Mild cortical scarring of the kidneys. No evidence for hydronephrosis. The above report was generated using voice recognition software. It may contain grammatical, syntax or spelling errors. Electronically signed by: Aquiles Hanley M.D. 06/13/2017 11:40 AM Dictated Date/Time: 06/13/2017 11:39 AM
== END | disposition home or self-care (01) ==
LOC: C.ULTR 11:06
PROVIDERS: ATTEND Internal Medicine Nephrology
DX: N17.9 Acute kidney failure, unspecified (principal)

== ENCOUNTER → 2017-06-13 | Outpatient (CLI) | payer OTHER ==
[2017-06-13 13:26] LABS: HEMATOCRIT 36.4 % (37-47); MEAN CELL VOLUME 88.1 fL (80-100); MEAN CORPUSCULAR HEMOGLOBIN 28.3 pg (25-34); MEAN CORPUSCULAR HGB CONC 32.1 g/dl (32-36); MEAN PLATELET VOLUME 10.5 fL (7.4-10.4); PLATELET COUNT 275 K/uL (130-400); RED BLOOD COUNT 4.13 M/uL (4.2-5.4); WHITE BLOOD COUNT 6.51 K/uL (4.8-10.8)
[2017-06-13 13:31] LABS: URINE APPEARANCE CLEAR (CLEAR); URINE BILIRUBIN NEG (NEG); URINE COLOR YELLOW; URINE NITRITE NEG (NEG); UROBILINOGEN NEG (NEG)
[2017-06-13 13:37] LABS: MANUAL MICROSCOPIC REQUIRED? NO; REVIEW REQ? NO
[2017-06-13 14:04] LABS: URINE TOTAL PROTEIN < 5.0 mg/dl (0-11.9)
[2017-06-13 14:05] LABS: URINE TOTAL PROTEIN < 5.0 mg/dl (0-11.9)
[2017-06-13 14:16] LABS: BUN/CREATININE RATIO 25.9 (10-20); CALCIUM 9.5 mg/dl (8.5-10.1); POTASSIUM 3.5 mmol/L (3.5-5.1)
[2017-06-13 17:07] LABS: URINE COLLECTION TIME 24 HOURS; URINE TOTAL PROTEIN CALC < 124.5 mg/24 hr (0-149.1)
--- NOTE | 2017-06-21 08:50 | CODING QUERY MEDICAL NECESSITY ---
SUPPORTING DIAGNOSIS NEEDED Dr. Sifuentes, A supporting diagnosis is required for the test/procedure performed on this patient in order for us to be reimbursed by the patient's insurance. Please provide a supporting diagnosis for the following test/procedure listed below next to the test name along with your signature. *If there is no additional diagnosis for this patient that would support the following test/procedure please document that below next to the test/procedure. Test(s)/Procedure(s) that require a supporting diagnosis: * ([id number]) VITAMIN D ASSAY DIAGNOSIS: DATE OF SERVICE: 06/13/17 Provider Signature: Date: Thank you Travon Sanchez [facility] Information Management Once completed, please kindly fax back to [phone] For questions please call [phone]
== END | disposition home or self-care (01) ==
LOC: C.LAB1850 11:41
PROVIDERS: ATTEND Internal Medicine Nephrology
DX: Z00.00 Encounter for general adult medical examination without abnormal findings (principal); N17.9 Acute kidney failure, unspecified; D64.9 Anemia, unspecified

== ENCOUNTER 2020-09-03 04:58 | Observation (INO) ==
--- NOTE | 2020-08-27 15:38 | PAT Medication Instructions ---
Medication Instructions Date of Service August 27, 2020 Home Medications albuterol sulfate 2 puff INHALATION Q6H PRN aspirin [Aspir-81] 81 mg PO QAM cholecalciferol (vitamin D3) [Vitamin D3] 20 mcg PO QAM coQ10 (ubiquinol) 100 mg PO QAM cranberry extract-vitamin C 1 cap PO QAM fish,bora,flax oils-om3,6,9no1 [[place] 3-6-9] 1 cap PO QAM fluticasone propion-salmeterol [Advair Diskus] 1 inh INHALATION BID omeprazole 20 mg PO QAM rosuvastatin 5 mg PO Q2D sertraline 25 mg PO BID tramadol 50 mg PO BID triamterene-hydrochlorothiazid 1 cap PO BID Continue as directed rosuvastatin 5 mg PO Q2D STOP taking 2 weeks before surgery coQ10 (ubiquinol) 100 mg PO QAM cranberry extract-vitamin C 1 cap PO QAM fish,bora,flax oils-om3,6,9no1 [[place] 3-6-9] 1 cap PO QAM DO NOT take the morning of surgery cholecalciferol (vitamin D3) [Vitamin D3] 20 mcg PO QAM triamterene-hydrochlorothiazid 1 cap PO BID Take morning of surgery With a small sip of water, OTHERWISE NOTHING TO EAT OR DRINK AFTER MIDNIGHT: albuterol sulfate 2 puff INHALATION Q6H PRN (use if needed; please bring with you to hospital day of surgery if possible) aspirin [Aspir-81] 81 mg PO QAM fluticasone propion-salmeterol [Advair Diskus] 1 inh INHALATION BID omeprazole 20 mg PO QAM sertraline 25 mg PO BID tramadol 50 mg PO BID (okay to take up to 4 hours prior to surgery if needed) Take evening before surgery albuterol sulfate 2 puff INHALATION Q6H PRN (if needed) fluticasone propion-salmeterol [Advair Diskus] 1 inh INHALATION BID sertraline 25 mg PO BID tramadol 50 mg PO BID triamterene-hydrochlorothiazid 1 cap PO BID Other Notes If you have any questions please call us at [phone] or [phone] or [phone] or [phone]
--- NOTE | 2020-08-30 10:43 | XRay Report ---
XR chest Pre-admission PA/Lat CLINICAL HISTORY: Preoperative evaluation. COMPARISON STUDY: Chest radiograph January 12, 2017. FINDINGS: Lung volumes are normal. Lungs are clear. There is no pneumothorax or pleural effusion. Car diac size is normal. Mediastinal contours are normal. There is no evidence for pulmonary edema. IMPRESSION: No acute cardiopulmonary findings. ACT 112: Negative or not required by law. Electronically signed by: Ahsan Espino M.D. 08/30/2020 10:42 AM
--- NOTE | 2020-08-30 10:49 | Anesthesiology Consultation ---
Date of Service August 30, 2020 Assessment & Plan (1) Encounter for pre-operative examination: Chart Review Chart Review: Acceptable Risk for Surgery (pending preop Covid testing ) and Patient seen in Pre Admission Testing With left TKA - had left LE numbness for hours after surgery (entire leg- not just knee area). (Anesthesia record in included- L TKA 02/19/17= Done under SAB at L4-5 with 1 attempt. No anesthesia issues noted per record) Per patient- most pain meds and antibiotics cause nausea. Per PAT appt on 08/30/20, pt resides in [facility]. Wears mask, uses good hand hygiene and socially distances. No known Covid positive contacts or Covid related symptoms. Pt had preop Covid testing prior to PAT appt on 08/30/20= results pending. Educated on importance of self quarantining, social distancing and wearing mask in public both for the patient and household contacts. Teaching & Discussion Pre-Anesthesia Teaching/Discussion Notes: Instructed NPO after midnight before surgery,except medications with 15 cc of water. Medication instructions provided according to the PAT guidelines. History Surgery Operation Date: 09/03/20 07:00 Proposed Procedures p Right Total Hip Arthroplasty - Kenan Boothe MD Height/Weight Height: 5 ft 3 in Weight: 70.3 kg Allergies Allergy/AdvReac Type Severity Reaction Status Date / Time levofloxacin Allergy Severe ANAPHYLAXIS Verified 08/19/20 14:10 calcium Allergy Mild STOMACH Verified 08/19/20 14:10 ACHE AND CONSTIPATION amoxicillin Allergy Unknown Vomiting Verified 08/19/20 14:10 clavulanic acid Allergy Unknown Vomiting Verified 08/19/20 14:10 doxycycline Allergy Unknown UNKNOWN Verified 08/19/20 14:10 Sulfa (Sulfonamide Allergy Unknown Nausea Verified 08/19/20 14:10 Antibiotics) codeine AdvReac Intermediate vomiting Verified 08/19/20 14:10 Penicillins AdvReac Intermediate PT STATES, Verified 08/19/20 14:10 ALL ANTIBIOTICS MAKE HER NAUSEAUS STRONG PAIN MEDICATION Allergy Mild STRONG Uncoded 08/19/20 14:10 MEDS MAKE HER SICK TO STOMACH salasate Allergy Unknown UNKNOWN Uncoded 08/19/20 14:10 REACTION Medications Home Medications Medication Instructions Recorded Confirmed Last Taken albuterol sulfate 2 puff INHALATION Q6H PRN 08/19/20 08/19/20 Unknown aspirin [Aspir-81] 81 mg PO QAM 08/19/20 08/19/20 Unknown cholecalciferol (vitamin D3) 20 mcg PO QAM 08/19/20 08/19/20 Unknown [Vitamin D3] coQ10 (ubiquinol) 100 mg PO QAM 08/19/20 08/19/20 Unknown cranberry extract-vitamin C 1 cap PO QAM 08/19/20 08/19/20 Unknown fish,bora,flax oils-om3,6,9no1 1 cap PO QAM 08/19/20 08/19/20 Unknown [Bush 3-6-9] fluticasone propion-salmeterol 1 inh INHALATION BID 08/19/20 08/19/20 Unknown [Advair Diskus] omeprazole 20 mg PO QAM 08/19/20 08/19/20 Unknown rosuvastatin 5 mg PO Q2D 08/19/20 08/19/20 Unknown sertraline 25 mg PO BID 08/19/20 08/19/20 Unknown tramadol 50 mg PO BID 08/19/20 08/19/20 Unknown triamterene-hydrochlorothiazid 1 cap PO BID 08/19/20 08/19/20 Unknown Past Medical History Medical History Anxiety Chronic obstructive pulmonary disease Stable and controlled Hyperlipidemia Hypertension Meniere disease Stable and controlled Palpitations Chronic issue - stable - intermittent - triggered anxiety Exercise / Class Metabolic Activity II 4-5 Yardwork/Stairs/Walk up hill (one flight of stairs - no chest pain or SOB ) Past Family History Family History Sister Family history of reaction to anesthesia PONV Family history of diabetes mellitus Mother Family history of reaction to anesthesia PONV Family history of diabetes mellitus Sister Family history of reaction to anesthesia PONV Family history of diabetes mellitus Father Family history of diabetes mellitus Brother Family history of diabetes mellitus Grandmother (Maternal) Family history of diabetes mellitus Grandmother (Paternal) Family history of diabetes mellitus Past Surgical History Surgical History History of hysterectomy TOTAL History of total knee replacement R/L Nausea and vomiting after administration of anesthetic agent Past Anesthesia History No Hx of Anesthesia Complications (with exception with PONV (had no issues with right TKA- did have increased PONV with left TKA- did have scop patch for right TKA) ) and No Family Hx of Anesthesia Complications History of PONV History of PONV (Severe ) and Hx of Motion Sickness Social History Smoking Status: Never smoker Do You Dip or Chew Tobacco: No Hx Alcohol Use: No Hx Substance Use: No Review of Systems Occ reflux - well controlled and stable with Omeprazole Occ snoring - no witnessed apnea. No hx of sleep study Hx of blood transfusions - s/p hysterectomy and TKA Patient denies chest pain, shortness of breath, dyspnea on exertion, cough, wheezing. No hx of seizures, stroke, VT. No hx of blood clots. Physical Exam Vital Signs VITALS BP 135/70 P 67 TEMP 97.9 SP02 98% RESP 16 Constitutional no acute distress ENMT Mouth: no TMJ clicking Thyromental Distance: < 3.5 Finger Breadths (3.0) Mallampati Class: II Capped to side teeth right side and molars teeth Neck + limited neck extension (mild ) Respiratory normal respiratory effort; no respiratory distress Auscultation: lungs clear to auscultation bilaterally; no wheezes Cardiovascular Rate/Rhythm: regular rate and regular rhythm Heart Sounds: no murmur Vessels: no carotid bruit Musculoskeletal Spine: no pain with cervical ROM Neurologic moves all extremities Psychiatric Orientation: alert Testing Laboratory Results 08/30/20= WBC: 6.94 H/H: 13.0/39.3 PLATELETS: 257 SODIUM: 139 POTASSIUM: 3.9 CHLORIDE: 103 CO2: 31 BUN: 29 CREATININE: 1.06 GLUCOSE: 89 PT: 10.4 PTT: 28.9 INR: 1.0 T&S= O positive, antibody negative Electrocardiogram Date: 08/30/20 Findings: + NSR @ (69) Normal EKG. Chest X-Ray Date: 08/30/20 Findings: + NAD
--- NOTE | 2020-08-30 16:10 | Electrocardiogram Report ---
Test Reason : Blood Pressure : / mmHG Vent. Rate : 069 BPM Atrial Rate : 069 BPM P-R Int : 168 ms QRS Dur : 082 ms QT Int : 394 ms P-R-T Axes : 066 036 047 degrees QTc Int : 422 ms Normal sinus rhythm Normal ECG When compared with ECG of 12-JAN-2017 11:34, No significant change was found Confirmed by Tashi Tyler ([id number]) on 08/30/2020 4:10:13 PM Referred By: Kenan Boothe Confirmed By:Tashi Tyler
[2020-09-03] MEDS ORDERED: GABAPENTIN 300 MG CAP PO SCH (06:00)
[2020-09-03] MEDS ORDERED: LR 500ML BOLUS, THEN 15ML/HR IV SCH (06:00)
[2020-09-03] MEDS ORDERED: TRANEXAMIC ACID 1,000 MG **IV Pre-op IV SCH (06:00)
[2020-09-03] MEDS ORDERED: LR 60ML/HR IV SCH (06:00)
[2020-09-03] MEDS ORDERED: SCOPOLAMINE 1.5 MG TDSY TD SCH (06:00)
[2020-09-03] MEDS ORDERED: METOCLOPRAMIDE HCL 10 MG TABLET PO SCH (06:00)
[2020-09-03] MEDS ORDERED: FAMOTIDINE 20 MG TAB PO SCH (06:00)
[2020-09-03] MEDS ORDERED: ACETAMINOPHEN 500 MG TAB PO SCH (06:00)
[2020-09-03] MEDS ORDERED: ceFAZolin 2000MG 2,000 MG/15 ML SYR IV SCH (06:00)
[2020-09-03] MEDS ORDERED: BUPIVACAINE 0.5 % 5 MG/1 ML PF 10ML VIAL ONE (06:22)
[2020-09-03] MEDS ORDERED: BUPIVACAINE 0.5 % 5 MG/1 ML MPF 30ML VIAL ONE (06:27)
[2020-09-03] MEDS ORDERED: BACITRACIN INJ 50,000 UNIT VIAL ONE (06:27)
[2020-09-03] MEDS ORDERED: EPINEPHrine INJ 1 MG/ML AMP ONE (06:27)
[2020-09-03] MEDS ORDERED: PROPOFOL IV EMULSION 10 MG/ML 20 ML VIAL IV ONE ×2 (06:38→07:42)
[2020-09-03] MEDS ORDERED: fentaNYL citrate 100 MCG/2 ML VIAL ONE (06:38)
[2020-09-03] MEDS ORDERED: LIDOCAINE HCL 2% 2 ML VIAL/AMP(20MG/ML) INFIL ONE (06:38)
[2020-09-03] MEDS ORDERED: MIDAZOLAM HCL 1 MG/ML 2ML VIAL ONE (06:38)
[2020-09-03] MEDS ORDERED: MoRPHine SULFATE PF 1 MG/ML 10 ML AMP/VIAL ONE (06:38)
--- NOTE | 2020-09-03 06:54 | History & Physical Bridge Note ---
Date of Service September 03, 2020 History & Physical Bridge Note I have examined the patient, reviewed the History & Physical and in the interval since the performance of the History & Physical I have noted the following changes of clinical significance: no changes noted
[2020-09-03] MEDS ORDERED: ATROPINE SULFATE 0.1 MG/ML 10ML SYR IV PRN ×2 (07:09→12:29)
[2020-09-03] MEDS ORDERED: ePHEDrine sulfate 50 MG/ML AMP IV PRN ×2 (07:09→12:29)
[2020-09-03] MEDS ORDERED: fentaNYL citrate 100 MCG/2 ML VIAL IV PRN ×2 (07:09→12:29)
[2020-09-03] MEDS ORDERED: ONDANSETRON INJ 2 MG/ML 2 ML VIAL IV PRN ×2 (07:09→09:40)
[2020-09-03] MEDS ORDERED: DEXAMETHASONE SOD INJ 4 MG/ML VIAL ONE (07:10)
--- NOTE | 2020-09-03 08:30 | Post Operative Brief Note ---
PG Immediate Post Op with CF Date of Surgery September 03, 2020 Pre & Post Diagnosis Operation Date: 09/03/20 07:00 Pre-Op Diagnosis: Right Hip Degenerative Joint Disease Post-Op Diagnosis: Right Hip Degenerative Joint Disease I identified the patient and participated in the time-out.: Yes Procedure Operation Date: 09/03/20 07:00 Actual Procedures p Right Total Hip Arthroplasty(Right) - Kenan Boothe MD Surgeon Kenan Boothe MD Fastener Sewing Machine Operator Lilly, PAC Estimated Blood Loss 200 Findings Consistent with Post-Op Diagnosis Fluids 1100 cc Specimens Specimen Description: Permanent Solution: A.) Right Femoral Head Drains Alas Catheter (16 armenian 10ml balloon; clean/dry/intact; urine monitored throughout entire case by anesthesia staff) Anesthesia Type Spinal MAC Complications none Disposition Accompanied Patient To Recovery: Yes Disposition: Recovery Room
--- NOTE | 2020-09-03 08:43 | Operative Report ---
Post Operative Report Pre & Post Diagnosis Operation Date: 09/03/20 07:00 Pre-Op Diagnosis: Right Hip Degenerative Joint Disease Post-Op Diagnosis: Right Hip Degenerative Joint Disease I identified the patient and participated in the time-out.: Yes Procedure Operation Date: 09/03/20 07:00 Actual Procedures p Right Total Hip Arthroplasty(Right) - Kenan Boothe MD Surgeon Kenan Boothe MD Simulation Developer Lilly, PAC Estimated Blood Loss 200 Findings Consistent with Post-Op Diagnosis Operative findings revealed advanced right hip DJD with extensive grade 4 [id number] disease the femoral head and acetabulum. She had cystic changes of the acetabulum. She had a protrusio appearance to the acetabulum with a very thin medial wall and large anterior and posterior osteophytes. Fluids 1100 cc. Specimens Right femoral head symptomatology. Drains None. Anesthesia Type Spinal MAC Disposition Accompanied Patient To Recovery: Yes Disposition: Recovery Room Indications Patient is a 69-year-old female sent 7-year history of increased right hip pain discomfort and stiffness. She failed all conservative measures up. She was interested in having her hip replaced about a year ago but had to cancel her due to her 's illness. Her is now recovered and she is like to have her hip fixed. She is markedly debilitated by her hip pain and discomfort. She failed all conservative measures. Description of Procedure Operative implants consist of: 1 Biomet G7 size 52 mm acetabular shell. 2. 6.5 cancellous acetabular screws 1 a 35 mm length and 1 a 25 mm length. 3. An apex hole cash management coordinator. 4. Highly cross-linked polyethylene liner with a 52 mm outer diameter and 36 mm inner diameter. 5. DePuy Corail size 10 short neck KLA femoral stem. 6. Left 5/36 mm ceramic articular ball. Patient was taken the operating identified and placed on the operating table supine position but a contractors were properly padded. IV antibiotics tried by anesthesia team. A spinal anesthetic had been implemented holding area. Alas catheter was placed in sterile fashion with the patient then placed in the left lateral decubitus position. An axillary roll was placed. Stulberg hip positioner was used for positioning. The right hip and leg were then prepped and draped in usual sterile fashion. A posterior lateral approach to the right hip was then performed to a curvilinear incision centered over the greater trochanter. Sharp dissection Through subcutaneous tissue down to the IT band gluteal fascia. The IT band gluteal fascia were then incised longitudinally in line with the skin incision. The underlying greater bursa was excised. The piriformis and external rotators were then tagged and taken off the posterior aspect hip joint capsule. Posterior capsulotomy was then performed leaving a large flap for later repair. There really was not much capsule laxity remaining as she had a very protruded/protrusio hip. I attempted to dislocate the hip but had difficulty due to the deep socket. Therefore, to avoid any risk of fracture, I elected to cut the neck in situ. Cut the neck and then retracted the femur anteriorly. The femoral head was removed. I then internally rotated the hip and recut the neck about 5 mm above the lesser trochanter. The femur was then once again retracted anteriorly and attention drawn the acetabulum. The acetabular labrum was excised. Was mostly ossified. I then began reaming. But we did not really ream centrally at all. We just reamed for bigger size and eventually reamed up to 51. I then just did some gentle reaming of the [address] a 52 mm Biomet G7 acetabular shell in about 40 degrees lateral opening and 20 degrees of anteversion. It was fixed with two 6.5 cancellous acetabular screws. Anterior osteophyte was removed. Trial liner was placed. Attention down the femur. Proximal femur then with cookie-cutter followed by canal finder. Broached in size 8 and progressed up to 10. The proximal dimensions were pretty full at 810 and I elected not to broach any further. We then trialed the hip and the short neck seem to be most appropriate with a +5 head. Hip was fully stable in full extension and external rotation in flexion to 90 degrees internal rotation over [address] implants. All trial implants were removed. An apex hole lemonade was placed but highly cross-linked polyethylene liner was placed. A DePuy size 10 A short neck femoral stem was impacted in position. +5/36 mm ceramic articular ball was placed. Hip was located once again found to be stable. Attention drawn to closing. Wounds irrigated with copious pulsatile lavage solution. I did inject locally with 60 cc of absent Marcaine with epinephrine. The posterior capsule external rotators were then repaired through drill holes in the posterior trochanter with #2 Tycron suture. The ITB and gluteal fascia then closed in 1 PDS suture running fashion for the subcutaneous tissue then closed in 2 layers with a deep layer #2 Vicryl suture in the subcutaneous tissues with 2-0 Dexon suture in a buried interrupted fashion. Skin was closed skin michael. Leg was then cleaned and dried and a sterile dressing composed of Xeroform, 4 fours, sterile ABD pad, foam tape were applied. Patient then transferred to the recovery room in stable condition. Patient tolerated the procedure well and there were no complications. Enmanuel Carr, my physician food and beverage assistant manager, was present for the entire procedure. His assistance was essential and required for appropriate patient positioning, prepping and draping, surgical exposure, performing the technical details of the operation, placement the implants, closure of the wound, and placement of the sterile bandage. I attest to the content of the Intraoperative Record and any orders documented therein. Any exceptions are noted below.
--- NOTE | 2020-09-03 09:03 | XRay Report ---
XR hip 1V RT w pelvis CLINICAL HISTORY: Postoperative evaluation. COMPARISON: Pelvis radiograph October 25, 2011. FINDINGS: Alignment of the total right hip arthroplasty is anatomic. No periprosthetic fracture or u nexpected radiopaque foreign body. There are acetabular screws. IMPRESSION: Expected findings following total right hip arthroplasty. ACT 112: Negative or not required by law. Electronically signed by: Ahsan Espino M.D. 09/03/2020 9:02 AM
--- NOTE | 2020-09-03 09:16 | Anesthesiology Progress Note ---
Date of Service September 03, 2020 Anesthesia Post Procedure Vital Signs Vital Signs: Temp Pulse Pulse Resp BP Pulse Ox 09/03/20 09:10 36.6 C 70 18 136/64 97 09/03/20 09:00 67 12 135/65 97 09/03/20 08:50 67 15 138/72 97 09/03/20 08:40 69 16 124/60 97 09/03/20 08:32 36.3 C L 69 15 120/58 L 98 09/03/20 05:39 36.4 C L 82 20 157/69 H 97 Pain Intensity Right Hip: Pain Intensity: 0 Transfer of Care Handoff Completed per policy Notes Mental Status: alert / awake / arousable and participated in evaluation Nausea / Vomiting: adequately controlled Pain: adequately controlled Airway Patency, RR, SpO2: stable & adequate BP & HR: stable & adequate Hydration State: stable & adequate Neuraxial Anesthesia: was administered and sensory block is resolving Anesthetic Complications: no major complications apparent and Pt Satisfied with anesthetic care
[2020-09-03] MEDS ORDERED: bisacodyL 10 MG SUPP PR PRN (09:40)
[2020-09-03] MEDS ORDERED: CRANBERRY EXTRACT VITAMIN C PO SCH (09:40)
[2020-09-03] MEDS ORDERED: NALOXONE HCL 0.4 MG/1 ML VIAL/CARP IV PRN (09:40)
[2020-09-03] MEDS ORDERED: ALBUTEROL HFA 8 GM INHALER INH PRN (09:40)
[2020-09-03] MEDS ORDERED: traMADol HCL 50 MG TABLET PO PRN (09:40)
[2020-09-03] MEDS ORDERED: HYDROmorphone INJ 0.5 MG/0.5 ML SYR IV PRN (09:40)
[2020-09-03] MEDS ORDERED: METOCLOPRAMIDE HCL INJ 5 MG/ML 2 ML VIAL IV PRN (09:40)
[2020-09-03] MEDS ORDERED: MAGNESIUM HYDROXIDE SUSP 30 ML UDC PO PRN (09:40)
[2020-09-03] MEDS ORDERED: ALUMINUM/MAGNESIUM SUSP 30 ML UDC PO PRN (09:40)
[2020-09-03] MEDS ORDERED: NON-FORMULARY MEDICATION (Coq10 (Ubiquinol) 100 MG) PO SCH (09:40)
[2020-09-03] MEDS: CHECK SCOPOLAMINE PATCH PLACEMENT SCH ×2 (09:59→16:48)
[2020-09-03] MEDS: FLUTICASONE/VILANTEROL 100/25MCG 14 PUFFS/INHALER INH SCH (10:39)
[2020-09-03] MEDS: ASPIRIN 81 MG ECTAB PO SCH ×2 (10:39→20:23)
[2020-09-03] MEDS: DOCUSATE SODIUM 100 MG CAP PO SCH ×2 (10:40→20:25)
[2020-09-03] MEDS: TRIAMTERENE/HCTZ 37.5/25MG CAP PO SCH ×2 (10:40→16:49)
[2020-09-03] MEDS: MULTIVITAMIN TAB PO SCH (10:41)
[2020-09-03] MEDS: OMEGA-3 (PURIFIED FISH OIL) 1 GM CAP PO SCH (10:41)
[2020-09-03] MEDS: CHOLECALCIFEROL (VITAMIN D) 400 UNITS TABLET PO SCH (10:42)
[2020-09-03] MEDS: KETOROLAC TROMETHAMINE 15 MG/ML VIAL IV SCH ×2 (10:42→17:56)
[2020-09-03] MEDS ORDERED: HYDROmorphone INJ 1 MG/ML SYRINGE IV PRN (12:29)
[2020-09-03] MEDS: SODIUM CHLORIDE 0.9% 1000ML 1,000 ML IV SCH ×2 (13:35→21:34)
--- NOTE | 2020-09-03 13:51 | Progress Notes ---
DATE: 09/03/2020 SUBJECTIVE: A 69-year-old white female postop from a right hip replacement. She is doing well. Not having any pain yet. No chest pain or shortness of breath. Not feeling dizzy or lightheaded. OBJECTIVE: VITAL SIGNS: Temperature is 36.6. Vital signs stable. GENERAL: Shows a pleasant, middle-aged female. She is sitting up in bed, looks pretty comfortable. LUNGS: Clear to auscultation. HEART: Has a regular rate and rhythm. ABDOMEN: Soft, nontender, nondistended. EXTREMITIES: Grossly neurovascularly intact except as follows: Examination of the right leg reveals the leg to be well aligned. Dressing is clean, dry and intact. Thigh is soft and supple. Hip is located. She is neurologically intact. She can dorsiflex and plantarflex her foot appropriately. X-RAYS: X-rays of the right hip from recovery room reviewed. It shows right uncemented total hip arthroplasty. Components looked to be in good position. No signs of problems. ASSESSMENT: A 69-year-old female postop from a right hip replacement, doing well. Pain is controlled. Hip is located. She is neurologically intact. PLAN: 1. DVT prophylaxis including thigh-high TEDs, SCDs, and aspirin twice a day. 2. PT/OT. Weightbearing as tolerated. Right total hip protocol. 3. Pain control, doing well with current pain regimen. 4. IV antibiotics x24 hours. 5. Disposition: Plan to discharge to home with some home health once medically stable and adequately recovered and rehabbed.
[2020-09-03] MEDS: ACETAMINOPHEN 500 MG TAB PO SCH ×2 (14:09→21:30)
[2020-09-03] MEDS ORDERED: TRANEXAMIC ACID / 0.7% NACL 1,000 MG/100 ML BAG IV SCH (14:30)
[2020-09-03] MEDS: ceFAZolin 1000MG 1,000 MG/7.5 ML SYR IV SCH ×2 (14:42→22:27)
[2020-09-03] MEDS: ASCORBIC ACID 500 MG TAB PO SCH (16:49)
[2020-09-03] MEDS: FERROUS GLUCONATE 324 MG TAB PO SCH (16:49)
[2020-09-03] MEDS: SERTRALINE HCL 50 MG TABLET PO SCH (20:24)
[2020-09-03] MEDS ORDERED: SENNA 8.6 MG TAB PO SCH (21:00)
[2020-09-04] MEDS: CHECK SCOPOLAMINE PATCH PLACEMENT SCH ×2 (00:13→08:45)
[2020-09-04] MEDS: KETOROLAC TROMETHAMINE 15 MG/ML VIAL IV SCH ×4 (00:13→12:29)
[2020-09-04 05:56] LABS: Hematocrit (blood only) 28.4 % (37-47); Hemoglobin 9.5 g/dL (12.0-16.0); Mean Corpuscular Hemoglobin 31.1 pg (25-34); Mean Corpuscular Hgb Conc 33.5 g/dL (32-36); Mean Corpuscular Volume 93.1 fL (80-100); RDW Standard Deviation 45.3 fL (36.4-46.3); Red Blood Count 3.05 M/uL (4.2-5.4)
[2020-09-04 05:57] LABS: Eosinophils # (auto) 0.04 K/uL (0-0.5); Eosinophils % (auto) 0.5 %; Immature Granulocytes # (auto) 0.01 K/uL (0.00-0.02); Immature Granulocytes % (auto) 0.1 %; Lymphocytes # (auto) 1.22 K/uL (1.2-3.4); Lymphocytes % (auto) 16.3 %; Mean Platelet Volume 10.4 fL (7.4-10.4); Monocytes # (auto) 0.73 K/uL (0.11-0.59); Monocytes % (auto) 9.7 %; Neutrophils % (auto) 73.4 %; Platelet Count 183 K/uL (130-400); RDW Coefficient of Variation 13.3 % (11.5-14.5)
[2020-09-04] MEDS: ACETAMINOPHEN 500 MG TAB PO SCH ×2 (06:15→13:20)
[2020-09-04 06:26] LABS: BUN Creatinine Ratio 23.1 (10-20); Calcium 8.7 mg/dl (8.5-10.1); Creatinine Clr Calc Pharmacy 45.7 ml/min; Est GFR (Non-African American) 51.8; Potassium 3.7 mmol/L (3.5-5.1)
[2020-09-04] MEDS: OMEGA-3 (PURIFIED FISH OIL) 1 GM CAP PO SCH (08:45)
[2020-09-04] MEDS: FLUTICASONE/VILANTEROL 100/25MCG 14 PUFFS/INHALER INH SCH (08:45)
[2020-09-04] MEDS: DOCUSATE SODIUM 100 MG CAP PO SCH (08:45)
[2020-09-04] MEDS: ASPIRIN 81 MG ECTAB PO SCH (08:46)
[2020-09-04] MEDS: FERROUS GLUCONATE 324 MG TAB PO SCH (08:46)
[2020-09-04] MEDS: CHOLECALCIFEROL (VITAMIN D) 400 UNITS TABLET PO SCH (08:46)
[2020-09-04] MEDS: MULTIVITAMIN TAB PO SCH (08:47)
[2020-09-04] MEDS: ASCORBIC ACID 500 MG TAB PO SCH (08:47)
[2020-09-04] MEDS: SERTRALINE HCL 50 MG TABLET PO SCH (08:47)
[2020-09-04] MEDS: TRIAMTERENE/HCTZ 37.5/25MG CAP PO SCH (08:48)
[2020-09-04] MEDS ORDERED: PANTOprazole 40 MG TAB PO SCH (09:00)
--- NOTE | 2020-09-04 09:01 | Progress Notes ---
DATE: 09/04/2020 SUBJECTIVE: A 69-year-old white female postop day 1 from right hip replacement. She is doing pretty well. Pain is controlled. She is a bit concerned about steps at home. No chest pain or shortness of breath. Not feeling dizzy or lightheaded. OBJECTIVE: VITAL SIGNS: Temperature 36.2. Vital signs stable. GENERAL: Shows a pleasant elderly female. She is sitting up in her bedside chair, looks completely comfortable. EXTREMITIES: Examination of the right hip and leg reveals the dressing to be clean, dry and intact. Leg lengths are equal. Hip is located. She is neurologically intact. LABORATORY DATA: Hemoglobin 9.5, hematocrit 28.4. Electrolytes are stable. ASSESSMENT: A 69-year-old white female postop day 1 from right hip replacement, doing pretty well. Pain is controlled. Hip is located. She is neurologically intact. PLAN: 1. DVT prophylaxis including thigh-high TEDs, SCDs, and aspirin twice a day. 2. PT/OT. Weight bear as tolerated. Right total hip program. 3. Pain control, doing well with current pain regimen. 4. Disposition: Plan to discharge to home with some home health once adequately recovered and medically stable. We will see how she does in therapy today.
[2020-09-04] MEDS ORDERED: ROSUVASTATIN CALCIUM 5 MG TAB PO SCH (21:00)
--- NOTE | 2020-09-10 08:31 | Discharge Summary ---
Date of Service September 10, 2020 Admission HPI Per Admitting Provider Documented in the H & P Admission Exam (Per Admitting) Constitutional Documented in the H & P Discharge Data Consultations 09/04/20 08:00 Consult Case Management - Discharge Planning Routine Procedures Performed Operation Date: 09/03/20 07:00 Actual Procedures p Right Total Hip Arthroplasty(Right) - Kenan Boothe MD Hospital Course (1) Status post total hip replacement, right: This patient is a 69 year old female admitted on 09/03/20 and underwent total hip arthroplasty. She tolerated the procedure well and there were no complications. Transferred to the PACU post op and later to the orthopedic floor for further care. She was given ancef for antibiotic prophylaxis. She was also given MARCE stockings, SCDs, and aspirin for DVT prophylaxis. Hemoglobin, hematocrit, and vital signs were monitored during her hospital stay and remained stable. Did not require any blood transfusions. There were no complications during her hospital stay. By post op day #1 the patient was tolerating a regular diet, pain was reasonably controlled with oral pain medicine, and she was participating in physical therapy. On post op day #1 the patient was discharged home and set up with home health care. She was given printed discharge instructions including prescriptions for extra strength tylenol, aspirin, tramadol and iron supplement. Continue physical therapy, weight bearing as tolerated. Continue total hip precautions Continue MARCE stockings. Follow up approximately 2 weeks post op or sooner if there are problems or concerns. Coding Level of Care Code None Diagnoses Status post total hip replacement, right Z96.641
== END 2020-09-04 14:01 | disposition home health service (06) ==
LOC: ASU 04:58 → 3E 04:58